=== PATIENT | female | born 1980 | race Two or more races ===

== ENCOUNTER 2019-07-05 11:40 | Inpatient (IN) | payer OTHER ==
[2019-07-05] MEDS ORDERED: ELECTROLYTE-148 SOLN 500 ML IV ONE (12:42)
[2019-07-05] MEDS ORDERED: ELECTROLYTE-148 SOLN 1,000 ML IV SCH (12:45)
[2019-07-05 12:49] VITALS: BMI 32.4
--- NOTE | 2019-07-05 12:49 | HP ---
Past Medical History - Admission History of Present Illness: 38 yo @ 38 6/7 wks, EDC 07/13/2019 complicated by: 1. AMA - Materni T21 and AFP Reassuring Most recent ultrasound 06/21/2019 - 51%ile (6-10, 3009g) Reassuring testing 2. 51 lb wt gain this Negative GCT 3. Parvo IgG positive in first trimester Normal imaging / growth by MFM Patient presents with chief complaint of contractions which began at 0300 She was found to be 3-4 cm on admission, + FM, no LOF or VB Limitations to Obtaining History: No Limitations - Past Medical History Cardiovascular: No: HTN Gastrointestinal: Yes: Hemorrhoids. No: GERD ...: 3 ...Para: 2 ...Term: 2 ...EDC by Dates: 07/13/19 Heme/Onc: No: Anemia - Past Surgical History Hx Myomectomy: No Hx Transabdominal Cerclage: No Additional Surgical History: Hemorrhoidectomy. Foot surgery x 2 Home Medications - Allergies Allergies/Adverse Reactions: Allergies Allergy/AdvReac Type Severity Reaction Status Date / Time shrimp Allergy Swelling Verified 07/05/19 12:17 Family Medical History Family History: Denies Review of Systems - Review of Systems Constitutional: reports: No Symptoms Cardiovascular: reports: No Symptoms Respiratory: reports: No Symptoms Genitourinary: reports: No Symptoms Integumentary: reports: No Symptoms Psychiatric: reports: No Symptoms Physical Exam - Maternity Constitutional: Yes: Well Nourished, No Distress, Calm Cardiovascular: Yes: Regular Rate and Rhythm, Varicosities - Abdominal Exam/OB Fundal Height: 40 Number of Fetuses: Single Presentation: Vertex Contractions: Yes Intensity: Moderate - Physical Exam Psychiatric: Yes: Alert, Oriented - Labs Lab Results: PNL - A positive, antibody negative; RPR NR; HIV neg; HBs Ag neg; HCV negative; Hg Lyric AA; Rubella Immune; Varicella Immune; Parvo IgG pos* Parvo Ig M pos; GCT wnl; GBS negative Hemorrhage Risk Assessment - Risk Factors Medium Risk Factors: Yes: None High Risk Factors: Yes: None Risk Score: 1 Risk Level: Medium Risk Assessment/Plan 38 yo @ 38+ wks, active labor 1. Admit to L&D 2. Consents reviewed and signed 3. Routine labs reviewed 4. GBS negative 5. Category I FHT 6. Will offer pain medication upon patient request 7. Will proceed with expectant management
[2019-07-05 13:13] LABS: BASO % 0.3 % (0-2.0); EOS % 0.4 % (0-4.5); HEMATOCRIT 37.3 % (32.4-45.2); HEMOGLOBIN 12.4 GM/dL (10.7-15.3); MCH 30.8 pg (25.7-33.7); MCHC 33.4 g/dl (32.0-36.0); MEAN CELL VOLUME 92.4 fl (80-96); MEAN PLT VOLUME 11.1 fl (7.5-11.1); MONO % 5.8 % (3.8-10.2); NEUT % 67.5 % (42.8-82.8); PLATELET COUNT 150 K/MM3 (134-434); RBC 4.04 M/mm3 (3.60-5.2); RDW 13.5 % (11.6-15.6); WHITE BLOOD COUNT 9.5 K/mm3 (4.0-10.0)
[2019-07-05 13:25] LABS: INR 0.91 (0.83-1.09); PROTHROMBIN TIME (PATIENT) 10.7 SEC (9.7-13.0)
[2019-07-05 13:28] LABS: ACTIVATED PTT 29.7 SECONDS (25.2-36.5)
[2019-07-05] MEDS ORDERED: FENTANYL/BUPIVACAINE/NS/PF - PCEA - 50 ML DISP.SYRIN EP ONE (13:32)
[2019-07-05 13:35] LABS: BLOOD UREA NITROGEN 11.2 mg/dL (7-18); CALCIUM 8.5 mg/dL (8.5-10.1); CREATININE 0.6 mg/dL (0.55-1.3); POTASSIUM 4.7 mmol/L (3.5-5.1)
[2019-07-05] MEDS ORDERED: LIDOCAINE HCL 1% PRESERVATIVE FREE - 30ML VIAL ONE (13:41)
[2019-07-05] MEDS ORDERED: FENTANYL/BUPIVACAINE/NS/PF - PCEA - 50 ML DISP.SYRIN EP SCH (14:05)
[2019-07-05] MEDS ORDERED: NALOXONE HCL 0.4 MG/ML VIAL IVPUSH PRN (14:14)
--- NOTE | 2019-07-05 15:17 | PN ---
Ante-Partal Exam - Subjective Subjective: Patient comfortable s/p epidural Vital Signs: Vital Signs Temperature 97.7 F 07/05/19 14:00 Pulse Rate 78 07/05/19 14:45 Respiratory Rate 20 07/05/19 14:45 Blood Pressure 94/48 L 07/05/19 14:45 O2 Sat by Pulse Oximetry (%) 100 07/05/19 14:45 Bleeding: No Headache: No Visual changes: No Right upper quadrant pain: No - Contractions Contractions: Yes Regularity: Regular Intensity: Unaware Monitor Mode: External - Exam during Labor Heart Rate: 155 Variability: Moderate Category: I Monitor Accelerations: Present Monitor Decelerations: Variable Exam: Rectal Dilatation (cm): 8 Effacement (%): 90 Amniotic Membrane Status: Ruptured Amniotic Fluid: Clear Station: -1 - Intrapartum Hemorrhage Risk Medium Risk Factors: None High Risk Factors: None Risk Score: 0 Risk Level: Low Risk - Assessment/Plan Assessment/Plan: 38 yo @ 38 + wks active labor 1. Good cervical change, AROM performed, clear fluid 2. GBS neg 3. Pain well controlled with epidural 4. Will proceed with expectant management
[2019-07-05] MEDS ORDERED: OXYTOCIN 20 UNITS in 0.9% NS 20 UNIT/1,000 ML INFUS.BAG IV ONE (15:56)
--- NOTE | 2019-07-05 16:46 | PN ---
Delivery - Delivery Vaginal Delivery: No Problems Type of Anesthesia: Epidural Episiotomy/Laceration: None EBL (cc): 300 Delivery, Single - Stages of Labor Date 1st Stage Initiatied: 07/05/19 Time 1st Stage Initiated: 03:00 Date 2nd Stage Initiated: 07/05/19 Time 2nd Stage Initiated: 16:25 Date of Delivery: 07/05/19 Time of Delivery: 16:32 Date Placenta Delivered: 07/05/19 Time Placenta Delivered: 16:37 Placenta: Yes: Spontaneous - Condition of Infant Gender: Female Position: Left, OA Total Hours ROM (Hrs/Mins): 1 hour 27 minutes - 1 Minute Total Score: 9 5 Minutes Total Score: 9 - Feeding Plan Initial Plan: Exclusive throughout hospitalization Remarks - Remarks Remarks: Patient progressed to fully dilated and at 1632 via delivered a viable female in ALISE position, APGARs 9,9. Weight and length unknown at this time. Head delivered spontaneously followed by shoulders and body without difficulty. with spontaneous cry and placed on mother's abdomen. Nose and mouth was bulb suctioned. Cord was clamped and cut. Perineum and vagina examined, no lacerations noted. Placenta was delivered spontaneously and intact. 20 units of pitocin in 1 L IVF was given. All counts correct x 2. Mother and stable in LDR. EBL 300cc.
[2019-07-05] MEDS ORDERED: ACETAMINOPHEN 325 MG TABLET (FP) PO PRN (16:47)
[2019-07-05] MEDS ORDERED: METHYLERGONOVINE MALEATE 0.2 MG/1 ML AMP IM PRN (16:47)
[2019-07-05] MEDS ORDERED: BISACODYL 10 MG SUPP.RECT RC PRN (16:47)
[2019-07-05] MEDS ORDERED: IBUPROFEN 600 MG TABLET (FP) PO PRN (16:47)
[2019-07-05] MEDS ORDERED: WITCH HAZEL 50% (TUCKS) 40 PAD/JAR PAD TP PRN (16:47)
[2019-07-05] MEDS ORDERED: BENZOCAINE 28 GM HEMORRHOIDAL OINTMENT TP PRN (16:47)
[2019-07-05] MEDS ORDERED: BENZOCAINE 20% 57 GM BOTTLE TP PRN (16:47)
[2019-07-05] MEDS ORDERED: OXYTOCIN 20 UNITS in 0.9% NS 20 UNIT/1,000 ML INFUS.BAG IV SCH (17:00)
[2019-07-06 07:57] LABS: BASO % 0.4 % (0-2.0); EOS % 0.3 % (0-4.5); HEMOGLOBIN 11.4 GM/dL (10.7-15.3); MCH 30.7 pg (25.7-33.7); MCHC 33.7 g/dl (32.0-36.0); MEAN CELL VOLUME 91.3 fl (80-96); MEAN PLT VOLUME 10.7 fl (7.5-11.1); MONO % 5.4 % (3.8-10.2); NEUT % 70.9 % (42.8-82.8); PLATELET COUNT 122 K/MM3 (134-434); RBC 3.72 M/mm3 (3.60-5.2); RDW 13.5 % (11.6-15.6); WHITE BLOOD COUNT 11.1 K/mm3 (4.0-10.0)
--- NOTE | 2019-07-06 08:59 | PN ---
Post Progress Note - Subjective Subjective: Patient without acute complaints. Reports tolerating oral intake without nausea or vomiting. Ambulating without dizziness. Denies fevers or chills. Pain well controlled with oral pain medication. without difficulty. Passing flatus. Post Day: 1 Type of Delivery: Vital Signs: Vital Signs Temperature 98.0 F 07/06/19 06:00 Pulse Rate 60 07/06/19 06:00 Respiratory Rate 20 07/06/19 06:00 Blood Pressure 135/78 07/06/19 06:00 O2 Sat by Pulse Oximetry (%) 98 07/05/19 22:26 Breast Exam: Yes: Soft Uterus: Yes: Fundus Firm, Fundus below umbilicus Abdomen/GI: Yes: Abdomen soft, Passing flatus, Tolerating PO. No: Abdominal Distention, Tender Lochia: Yes: Rubra Lochia, amount: Moderate Extremities: Yes: Calves non-tender. No: Edema Perineum: Yes: Intact Activity: Ambulating - Labs Labs: CBC WBC 11.1 K/mm3 (4.0-10.0) H 07/06/19 07:45 RBC 3.72 M/mm3 (3.60-5.2) 07/06/19 07:45 Hgb 11.4 GM/dL (10.7-15.3) 07/06/19 07:45 Hct 34.0 % (32.4-45.2) 07/06/19 07:45 MCV 91.3 fl (80-96) 07/06/19 07:45 MCH 30.7 pg (25.7-33.7) 07/06/19 07:45 MCHC 33.7 g/dl (32.0-36.0) 07/06/19 07:45 RDW 13.5 % (11.6-15.6) 07/06/19 07:45 Plt Count 122 K/MM3 (134-434) L 07/06/19 07:45 MPV 10.7 fl (7.5-11.1) 07/06/19 07:45 Absolute Neuts (auto) 7.9 K/mm3 (1.5-8.0) 07/06/19 07:45 Neutrophils % 70.9 % (42.8-82.8) 07/06/19 07:45 Lymphocytes % 23.0 % (8-40) 07/06/19 07:45 Monocytes % 5.4 % (3.8-10.2) 07/06/19 07:45 Eosinophils % 0.3 % (0-4.5) 07/06/19 07:45 Basophils % 0.4 % (0-2.0) 07/06/19 07:45 Nucleated RBC % 0 % (0-0) 07/06/19 07:45 Assessment/Plan 38 yo PPD # 1 s/p , afebrile, vital signs stable, doing well 1. Continue routine care. 2. AM CBC stable 3. Rh positive status, no rhogam indicated. 4. Encourage ambulation 5. Continue oral pain medication 6. Anticipate discharge home day #2
--- NOTE | 2019-07-06 09:22 | DS ---
Physical Exam-[employer] Vital Signs: Vital Signs Temperature 98.2 F 07/06/19 09:02 Pulse Rate 68 07/06/19 09:02 Respiratory Rate 18 07/06/19 09:02 Blood Pressure 130/86 07/06/19 09:02 O2 Sat by Pulse Oximetry (%) 98 07/05/19 22:26 Labs: CBC, BMP 07/06/19 07:45 07/05/19 12:35 Delivery - Delivery Vaginal Delivery: No Problems Type of Anesthesia: Epidural Episiotomy/Laceration: None EBL (cc): 300 Delivery, Single - Stages of Labor Date 1st Stage Initiatied: 07/05/19 Time 1st Stage Initiated: 03:00 Date 2nd Stage Initiated: 07/05/19 Time 2nd Stage Initiated: 16:25 Date of Delivery: 07/05/19 Time of Delivery: 16:32 Time Placenta Delivered: 16:37 Placenta: Yes: Spontaneous - 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 Weight and length unknown at this time. Head delivered spontaneously followed by shoulders and body without difficulty. Infant with spontaneous cry and placed on mother's abdomen. Nose and mouth was bulb suctioned. Cord was clamped and cut. Perineum and vagina examined, no lacerations noted. Placenta was delivered spontaneously and intact. 20 units of pitocin in 1 L IVF was given. All counts correct x 2. Mother and stable in LDR. EBL 300cc. Discharge Summary Problems reviewed: Yes Reason For Visit: LABOR ADMISSION Vaginal Delivery Procedures: Principal: Vaginal delivery Hospital Course: Patient presented in labor. She progressed to deliver via a viable female infant, APGARS 9,9, wt 6-12; 19 inches PPD # 1 she was voiding, passing gas, tolearting PO intake, CBC stable without signs of anemia. She fulfilled all criteria for DC home, for PPD #2 Condition: Good - Instructions Disposition: HOME - Home Medications Prescription Drug Monitoring Program (I-STOP) results: I-STOP not reviewed
[2019-07-06] MEDS: PRENATAL VITAMINS W/ FOLIC ACID TABLET (FP) PO SCH (10:06)
[2019-07-06] MEDS ORDERED: SENNOSIDES/DOCUSATE COMBO (SENNA PLUS) TABLET (UD) PO PRN (22:00)
--- NOTE | 2019-07-07 07:44 | PN ---
Progress Note (short form) - Note Progress Note: ppd2 no c/o ,no excess vaginal bleeding, voids ok Last Vital Signs Temp Pulse Resp BP Pulse Ox 97.9 F 59 L 20 144/79 98 07/06/19 22:00 07/06/19 22:00 07/06/19 22:00 07/06/19 22:00 07/05/19 22:26 CBC, BMP 07/06/19 07:45 07/05/19 12:35 abdomen soft, uterus firm, non tender lochia mild no calf tenderness plan d/c home, follow up office 4 weeks
[2019-07-07 08:42] VITALS: BP 128/74; PULSE 62; TEMP 97.8
[2019-07-07] MEDS: PRENATAL VITAMINS W/ FOLIC ACID TABLET (FP) PO SCH (09:29)
== END 2019-07-07 12:00 | disposition home or self-care (01) | DRG 807 ==
LOC: JDEL 11:40 → UNDOADMIN 12:10 → JLDR 12:10 → J3W 17:40
PROVIDERS: ADMIT Obstetrics & Gynecology; ATTEND Obstetrics & Gynecology
PROC: 10E0XZZ Delivery of Products of Conception, External Approach (ICD-10-PCS; principal; 2019-07-05)
DX: O80 Encounter for full-term uncomplicated delivery (principal); Z37.0 Single live birth; Z3A.38 38 weeks gestation of pregnancy
CPT/HCPCS: 36415; 59409; 80048; 85025; 85610; 85730; 86593; 86850; 86900; 86901; 87389

== ENCOUNTER 2024-02-12 20:09 | Emergency (ER) | payer BC, OTHER ==
[2024-02-12 20:23] VITALS: BP 156/73; PULSE 61; RESP 18; TEMP 98.7; BMI 26.4
[2024-02-12] MEDS ORDERED: ONDANSETRON *ODT* 4 MG TABLET ONE (21:23)
[2024-02-12] MEDS ORDERED: MAG HYDROX/AL HYDROX/SIMETH 30 ML UNIT-DOSE CUP ONE (21:23)
[2024-02-12] MEDS ORDERED: FAMOTIDINE 10 MG TABLET ONE (21:23)
[2024-02-12] MEDS: MAG HYDROX/AL HYDROX/SIMETH 30 ML UNIT-DOSE CUP PO ONE (21:37)
[2024-02-12] MEDS: FAMOTIDINE 10 MG TABLET PO ONE (21:37)
[2024-02-12] MEDS: ONDANSETRON 4 MG TABLET PO ONE (21:37)
[2024-02-12 21:44] LABS: BASO % 0.3 % (0-2.0); EOS % 0.3 % (0-4.5); HEMATOCRIT 38.1 % (32.4-45.2); HEMOGLOBIN 12.6 GM/dL (10.7-15.3); LYMPH % 24.9 % (8-40); MCH 29.5 pg (25.7-33.7); MEAN CELL VOLUME 89.6 fl (80-96); MEAN PLT VOLUME 8.3 fl (7.5-11.1); MONO % 5.5 % (3.8-10.2); PLATELET COUNT 263 10^3/uL (134-434); RBC 4.25 M/mm3 (3.60-5.2); RDW 13.8 % (11.6-15.6); WHITE BLOOD COUNT 6.6 K/mm3 (4.0-10.0)
[2024-02-12 21:45] LABS: URINE APPEARANCE CLEAR; URINE BILIRUBIN NEGATIVE (NEGATIVE); URINE COLOR YELLOW; URINE GLUCOSE (UA) NEGATIVE (NEGATIVE); URINE KETONE NEGATIVE (NEGATIVE); URINE LEUK ESTERASE NEGATIVE (NEGATIVE); URINE NITRITE NEGATIVE (NEGATIVE); URINE PROTEIN NEGATIVE (NEGATIVE); URINE UROBILINOGEN 0.2 mg/dL (0.2-1.0)
[2024-02-12 21:48] LABS: HCG,QUALITATIVE URINE Negative
[2024-02-12 21:58] LABS: ALBUMIN 3.8 g/dl (3.4-5.0); CALCIUM 9.6 mg/dL (8.5-10.1)
[2024-02-12 21:59] LABS: BLOOD UREA NITROGEN 14.6 mg/dL (7-18); MAGNESIUM 2.2 mg/dL (1.8-2.4)
[2024-02-12 22:01] LABS: CREATININE 0.6 mg/dL (0.55-1.3)
[2024-02-12 22:03] LABS: BILIRUBIN,TOTAL 0.2 mg/dL (0.2-1); TOT PROT 7.6 g/dl (6.4-8.2)
[2024-02-12] MEDS: ACETAMINOPHEN 1000 MG/100 ML BAG IVPB ONE (22:45)
[2024-02-12] MEDS ORDERED: ACETAMINOPHEN INJECTION 100 ML ONE (22:46)
[2024-02-12 22:54] LABS: HIV INTERPRETATION NEGATIVE (NEGATIVE)
== END 2024-02-12 23:31 | disposition home or self-care (01) ==
LOC: JER 20:09
PROC: 3E033NZ Introduction of Analgesics, Hypnotics, Sedatives into Peripheral Vein, Percutaneous Approach (ICD-10-PCS; principal; 2024-02-12)
DX: K29.00 Acute gastritis without bleeding (principal); R11.2 Nausea with vomiting, unspecified; R10.32 Left lower quadrant pain
CPT/HCPCS: 36415; 80053; 81003; 83605; 83690; 83735; 84703; 85025; 86803; 87086; 87389; 99284-25; J0131